=== PATIENT | female | born 1995 | race American Indian/Alaskan Native ===

== ENCOUNTER 2016-12-20 14:21 | Outpatient (CLI) | payer OTHER, BC ==
--- NOTE | 2016-12-20 15:51 | XRay Report ---
LUMBOSACRAL SPINE, 3 VIEWS: History: Back pain Findings: The vertebral bodies, disk spaces and posterior elements are intact. No compression deformity or malalignment. The SI joints are symmetric and unremarkable. Impression: Unremarkable lumbar spine films.
== END 2016-12-20 14:22 | disposition home or self-care (01) ==
LOC: XRAY 14:21
PROVIDERS: ATTEND Internal Medicine
DX: M54.5 Low back pain (principal)
CPT/HCPCS: 72100